=== PATIENT | male | born 1945 | race Caucasian/White ===

== ENCOUNTER 2016-11-25 07:50 | Day surgery (SDC) | payer MEDICARE, MEDICAID ==
[~2016-11-25 07:50] MED LIST: Lactated Ringers 1,000 ML IV SCH; Sodium Chloride 0.9% 10 ML Syringe FLUSH PRN
[2016-11-25] MEDS ORDERED: ceFAZolin 1 GM in Premix Bag 1 BAG IV ONE (08:00)
[2016-11-25] MEDS ORDERED: diphenhydrAMINE 25 MG Tab PO ONE (09:15)
[2016-11-25] MEDS ORDERED: Ketorolac 30 MG/ML SDV IVPUSH ONE (11:44)
[2016-11-25] MEDS ORDERED: Propofol 200 MG/20 ML SDV IV ONE (11:44)
[2016-11-25] MEDS ORDERED: Glycopyrrolate 0.2 MG/ML 2 ML SDV IV ONE (11:44)
[2016-11-25] MEDS ORDERED: Midazolam 1 MG/ML 2 ML SDV IV ONE (11:44)
[2016-11-25] MEDS ORDERED: Midazolam 1 MG/ML 2 ML SDV ONE (11:44)
[2016-11-25] MEDS ORDERED: Lidocaine 2% 20 ML MDV INJECT ONE (11:44)
[2016-11-25] MEDS ORDERED: Ketorolac 30 MG/ML SDV ONE (11:44)
[2016-11-25] MEDS ORDERED: Ondansetron 4 MG/2 ML SDV IV ONE (11:44)
[2016-11-25] MEDS ORDERED: fentaNYL 100 MCG/2 ML SDV IV ONE (11:44)
[2016-11-25] MEDS ORDERED: fentaNYL 100 MCG/2 ML SDV ONE (11:44)
[2016-11-25] MEDS ORDERED: Ondansetron 4 MG/2 ML SDV ONE (11:44)
[2016-11-25] MEDS ORDERED: Propofol 200 MG/20 ML SDV ONE (11:45)
[2016-11-25] MEDS ORDERED: Glycopyrrolate 0.2 MG/ML 2 ML SDV ONE (11:45)
[2016-11-25] MEDS ORDERED: Lidocaine 2% 20 ML MDV ONE (11:45)
[2016-11-25] MEDS ORDERED: Succinylcholine 200 MG/10 ML MDV ONE (11:45)
[2016-11-25] MEDS ORDERED: Lidocaine 1% 30 ML SDV INJECT ONE ×5 (11:55→16:28)
[2016-11-25] MEDS ORDERED: Bupivacaine 0.5% 10 ML SDV INJECT ONE ×5 (11:55→16:28)
[2016-11-25] MEDS ORDERED: Acetaminophen/oxyCODONE 325-5 MG Tab PO PRN (13:22)
--- NOTE | 2016-11-25 13:26 | PCM.OPNOTE ---
{null, - General Post-Op/Procedure Note Date of Surgery/Procedure: 11/25/16 Operative Procedure(s): right foot bone spur excision 1st met/cuneiform joint area, bone spur excision hallus, tenotomy of digits 4 and 5, left foot tenotomy digits 2 and 3. Pre Op Diagnosis: Right foot painful bone spurs dorsal cuneiform, medial hallux , hammertoes 4 and 4, left foot hammertoes 2 and 3. Post-Op Diagnosis: audrey Anesthesia Technique: Local, MAC Primary Surgeon: Naima Moctezuma Newberry Anesthesia Provider: Haresh De Paz EBL in mLs: 5 Complications: none Condition: Good Free Text/Narrative:: Pt tolerated procedure well and was transported to pacu with vss and vascular status intact to bilateral feet. TT 48 mins. well padded dressing applied to both feet. }
[2016-11-25 15:00] VITALS: BP 119/78
--- NOTE | 2016-11-25 22:17 | OR ---
{null, DATE: 11/25/2016 PREOPERATIVE DIAGNOSES: 1. Right foot bone spur cuneiform. 2. Right foot bone spur of the hallux. 3. Hammertoes of the digits, four and five of the right foot. 4. Hammertoe digits, two and three of the left foot. POSTOPERATIVE DIAGNOSES: 1. Right foot bone spur cuneiform. 2. Right foot bone spur of the hallux. 3. Hammertoes of the digits, four and five of the right foot. 4. Hammertoe digits, two and three of the left foot. PROCEDURES PERFORMED: 1. Right foot bone spur excision of the medial cuneiform, first metatarsal joint area. 2. Right foot bone spur excision of the medial hallux. 3. Right foot flexor tenotomy of the fourth and fifth digits. 4. Left foot flexor tenotomy of the second and third digits. ANESTHESIA: Local MAC with preoperative local block of 10 mL 1:1 mixture of 1% lidocaine plain and 0.5% Marcaine plain. TOURNIQUET TIME: 48 minutes pneumatic ankle tourniquet. ESTIMATED BLOOD LOSS: Minimal. SPECIMEN: None. COMPLICATIONS: None. INDICATIONS: Simone is a 71-year-old male, who presents for pain of his right foot. He reports most of the pain is at the right great toe, which shoots up the front of his foot into his midfoot. He does have some bony prominences like it painful for him with pressure from shoe gear. This is both at the midfoot and at the big toe. Last year, I did do a tenotomy to both the second and third toes, which worked very well for him and he would like the same done on the fourth and fifth toes of the right foot and the second and third toes of the left foot. He is worrying if he can get those all done together. We have tried gel cushions to the area, hammertoe padding and crest pads with no relief. I did do a diagnostic and therapeutic injection to the nerve at the big toe as well as the midfoot joints a couple of months ago and this did provide relief for a while, but wore off. He is taking Lyrica, which does help some. X-rays of the foot and ankle reveal no signs of fracture present. There is a bone spur at the medial interphalangeal joint of the big toe, there is hammertoes of the fourth and fifth digits and a large amount of spurring at the dorsal mid foot joints. The patient voiced good understanding of proposed procedure and possible complications and elects to have surgery at this time. DESCRIPTION OF THE PROCEDURE: The patient was taken to the operating room, lying in supine position. After adequate anesthesia induction as described above, the left and right foot were prepped and draped in the usual sterile fashion. A pneumatic ankle tourniquet was inflated to the right ankle to 225 mmHg. Attention was then directed to the dorsal aspect of the right foot where an approximately 3 cm linear incision was made overlying the first metatarsal cuneiform joint area. Sharp and blunt dissection was made down to the level of the joint with care to gently retract the neurovascular structures. A 15 blade was used to cut the joint capsule and the capsule was reflected from the dorsal aspect to expose the bone spurs. The bone spurs were then removed with a rongeur and also with a bone rasp to ensure all edges were smoothed. The area was then inspected and no further spurring was noted. The joint looked to be in mostly healthy appearance, there was a defect at the very dorsal aspect, which was removed with a rongeur. Attention was then directed to the medial hallux where an approximately 2 cm linear incision was made overlying the medial aspect of the distal hallux overlying the distal phalanx. Sharp and blunt dissection was made down to the level of the bone spur at the distal phalanx. A rongeur was used to remove the bone spur and a bone rasp was used to smooth all bony edges. The area was inspected and there was no remaining spur present. Both areas were then irrigated with copious amounts of sterile saline. Deep capsular closure was completed with 3-0 Vicryl and skin closure was completed with 3-0 nylon. Attention was then directed to the plantar aspect of the fourth and fifth digits at the level of the sulcus. A blade was used to make a small poke- hole incision at both the plantar fourth and fifth digits and the flexor tenotomies were then sharply released with a 15 blade. The toes were noted to be in straight anatomic alignment after the tendons were released. The area was then irrigated and the skin was closed with 4-0 nylon. The foot was then dressed with Xeroform to the incision site, fluffs, Webril, and Carlos wrap. Attention was then directed to the left foot second and third digits where the same procedure was performed where a small poke hole was made with the blade and the flexor tendons were released with a 15 blade. Both second and third digits were noted to be in straight anatomic alignment at this time. The areas were irrigated and the incisions were closed with 4-0 nylon. That area was dressed with Xeroform to the incision site, Fluffs and Webril. The patient tolerated the procedure and anesthesia well and was transported to recovery room with vital signs stable in good condition with vascular status intact as noted by immediate hyperemia to all digits upon deflation of the ankle tourniquet. Once we were back in recovery and just prior to discharge, the patient asked if I would remove his right fourth toenail that is dystrophic and painful for him. I did get verbal consent from both him and his to do the toenail removal, which would just be a toenail avulsion, would not be a permanent procedure and the nail would grow back. He agrees and wants the nail removed while his foot is still numb. His foot was completely numb at this time, so I did go ahead and take a Garland and removed that toenail of the right fourth toe with a Garland elevator and a Band-Aid was then applied. He was given postop instructions for this. He was discharged to home when he met hospital discharge requirements. [facility] /[id number] }
--- NOTE | 2016-11-27 14:51 | PCM.SN ---
{null, - Free Text/Narrative Note: Late addendum to anesthesia record from November,. At the end of the surgery , I gave this patient 30mg toradol iv, but did not enter it onto the anesthesia record. }
== END 2016-11-25 14:40 | disposition home or self-care (01) ==
LOC: DL.SDS 07:50
PROVIDERS: ATTEND Podiatrist
DX: M20.42 Other hammer toe(s) (acquired), left foot (principal); M20.41 Other hammer toe(s) (acquired), right foot; E66.9 Obesity, unspecified; Z98.890 Other specified postprocedural states; Z79.899 Other long term (current) drug therapy
CPT/HCPCS: 28104; 28108; 28230; A9270; J0690; J1885; J2250; J2405; J2704; J3010; J7120; 01464; J3490